=== PATIENT | male | born 1970 | race Caucasian/White ===

== ENCOUNTER 2022-11-21 07:37 | Outpatient (CLI) | payer OTHER | END 2022-11-21 07:47 | disposition home or self-care (01) | LOC: RAD 07:37 → TOM 07:37 → RAD 07:47 | PROVIDERS: ATTEND Urology | DX: N40.0 Benign prostatic hyperplasia without lower urinary tract symptoms (principal); R10.84 Generalized abdominal pain; R31.0 Gross hematuria ==

== ENCOUNTER 2023-03-22 08:12 | Outpatient (CLI) | payer OTHER | END 2023-03-22 08:31 | disposition home or self-care (01) | LOC: RAD 08:12 | PROVIDERS: ATTEND Anesthesiology Pain Medicine | DX: M41.34 Thoracogenic scoliosis, thoracic region (principal); M41.9 Scoliosis, unspecified; M47.816 Spondylosis without myelopathy or radiculopathy, lumbar region; M47.817 Spondylosis without myelopathy or radiculopathy, lumbosacral region; M51.26 Other intervertebral disc displacement, lumbar region ==